=== PATIENT | female | born 1995 ===

== ENCOUNTER 2024-05-20 07:30 | Inpatient (IN) | payer BC ==
[2024-05-20] MEDS: ELECTROLYTE-148 SOLN 1,000 ML IV SCH (09:15)
[2024-05-20 09:17] LABS: BASO % 0.4 % (0-2.0); EOS % 0.9 % (0-4.5); HEMATOCRIT 32.6 % (32.4-45.2); HEMOGLOBIN 10.6 GM/dL (10.7-15.3); MCHC 32.3 g/dl (32.0-36.0); MEAN CELL VOLUME 83.5 fl (80-96); MEAN PLT VOLUME 9.3 fl (7.5-11.1); MONO % 12.2 % (3.8-10.2); NEUT % 64.5 % (42.8-82.8); PLATELET COUNT 149 10^3/uL (134-434); RBC 3.91 M/mm3 (3.60-5.2); RDW 14.1 % (11.6-15.6); WHITE BLOOD COUNT 5.6 K/mm3 (4.0-10.0)
[2024-05-20 09:27] LABS: INR 0.85 (0.83-1.09); PROTHROMBIN TIME (PATIENT) 9.7 SEC (9.7-13.0)
[2024-05-20 09:30] LABS: ACTIVATED PTT 24.4 SECONDS (25.2-36.5)
[2024-05-20] MEDS: OXYTOCIN 30 UNITS in 0.9% NS 30 UNIT/500 ML INFUS.BAG IVPB SCH (09:30)
[2024-05-20 09:37] LABS: POTASSIUM 3.6 mmol/L (3.5-5.1)
[2024-05-20 09:38] LABS: CALCIUM 8.4 mg/dL (8.5-10.1)
[2024-05-20 09:42] LABS: CREATININE 0.7 mg/dL (0.55-1.3)
[2024-05-20 09:43] VITALS: BMI 47.5
[2024-05-20] MEDS ORDERED: OXYTOCIN 30 UNITS in 0.9% NS 30 UNIT/500 ML INFUS.BAG IVPB ONE (09:47)
[2024-05-20] MEDS ORDERED: BUTORPHANOL TARTRATE 2 MG/ML VIAL ONE (15:32)
[2024-05-20] MEDS: PROMETHAZINE HCL 25 MG/1 ML VIAL IVPB ONE (15:45)
[2024-05-20] MEDS: BUTORPHANOL TARTRATE 2 MG/ML VIAL IVPB ONE (15:45)
[2024-05-20 19:58] LABS: HIV INTERPRETATION NEGATIVE (NEGATIVE)
[2024-05-20] MEDS ORDERED: OXYTOCIN 20 UNITS in 0.9% NS 20 UNIT/1,000 ML INFUS.BAG IV ONE (21:05)
[2024-05-20] MEDS ORDERED: LIDOCAINE HCL 1% PRESERVATIVE FREE - 30ML VIAL ONE (21:05)
[2024-05-20] MEDS: OXYTOCIN 20 UNITS in 0.9% NS 20 UNIT/1,000 ML INFUS.BAG IV SCH (22:20)
[2024-05-20] MEDS ORDERED: BENZOCAINE 28 GM HEMORRHOIDAL OINTMENT TP PRN (23:02)
[2024-05-20] MEDS ORDERED: BISACODYL 10 MG SUPP.RECT RC PRN (23:02)
[2024-05-20] MEDS ORDERED: oxyCODONE HCL 5 MG TABLET PO PRN (23:02)
[2024-05-20] MEDS ORDERED: WITCH HAZEL 50% (TUCKS) 40 PAD/JAR PAD TP PRN (23:02)
[2024-05-20] MEDS ORDERED: BENZOCAINE 20% 57 GM BOTTLE TP PRN (23:02)
[2024-05-20] MEDS ORDERED: METHYLERGONOVINE MALEATE 0.2 MG/1 ML AMP IM PRN (23:02)
[2024-05-20 23:30] LABS: CORD BASE EXCESS -6.9 mmol/L (0-2); CORD HCO3 19.2 mmHg (20-29); CORD PCO2 40.6 mmHg (30-78); CORD pH 7.292 (7.14-7.44)
[2024-05-21] MEDS: PRENATAL VITAMINS W/ FOLIC ACID TABLET (FP) PO SCH (09:04)
[2024-05-21 09:05] LABS: BASO % 0.1 % (0-2.0); HEMATOCRIT 31.8 % (32.4-45.2); HEMOGLOBIN 10.4 GM/dL (10.7-15.3); LYMPH % 6.4 % (8-40); MCH 27.4 pg (25.7-33.7); MCHC 32.7 g/dl (32.0-36.0); MEAN CELL VOLUME 83.8 fl (80-96); MEAN PLT VOLUME 9.7 fl (7.5-11.1); MONO % 8.1 % (3.8-10.2); NEUT % 85.4 % (42.8-82.8); PLATELET COUNT 133 10^3/uL (134-434); RBC 3.79 M/mm3 (3.60-5.2); RDW 14.3 % (11.6-15.6); WHITE BLOOD COUNT 11.6 K/mm3 (4.0-10.0)
[2024-05-21] MEDS: ACETAMINOPHEN 325 MG TABLET (FP) PO PRN (12:57)
[2024-05-21] MEDS ORDERED: SENNOSIDES/DOCUSATE COMBO (SENNA PLUS) TABLET (UD) PO PRN (22:00)
[2024-05-21 22:08] VITALS: PULSE 76
[2024-05-22] MEDS: IBUPROFEN 600 MG TABLET (FP) PO PRN (09:44)
[2024-05-22 12:23] VITALS: BP 103/61; RESP 16; TEMP 98.3
== END 2024-05-22 15:50 | disposition home or self-care (01) | DRG 560 ==
LOC: JLDR 07:30 → J3W 05-21 00:36
PROVIDERS: ADMIT Obstetrics & Gynecology; ATTEND Obstetrics & Gynecology
PROC: 10E0XZZ Delivery of Products of Conception, External Approach (ICD-10-PCS; principal; 2024-05-20)
PROC: 0KQM0ZZ Repair Perineum Muscle, Open Approach (ICD-10-PCS; 2024-05-20)
PROC: 0W8NXZZ Division of Female Perineum, External Approach (ICD-10-PCS; 2024-05-20)
DX: O99.214 Obesity complicating childbirth (principal); O70.1 Second degree perineal laceration during delivery; Z3A.39 39 weeks gestation of pregnancy; Z37.0 Single live birth
CPT/HCPCS: 36415; 36600; 59409; 80048; 82803; 85025; 85610; 85730; 86780; 86803; 86850; 86900; 86901; 87389